=== PATIENT | female | born 1955 | race Caucasian/White ===

== ENCOUNTER → 2020-06-03 | Outpatient (REF) | payer OTHER ==
[2020-06-03 13:29] LABS: C REACTIVE PROTEIN QUANTITATIV 0.34 MG/DL (0.00-0.30); CPK CREATINE PHOSPHOKINASE 220 U/L (26-192); IRON (FE) 74 UG/DL (50-170); RHEUMATOID FACTOR QUANT < 10.0 IU/ML (<15.0); TOTAL 25(OH) VITAMIN D 24.9 NG/ML (30.0-100.0); VITAMIN B12 LEVEL 691 PG/ML (247-911)
[2020-06-03 13:51] LABS: HEMOGLOBIN A1c 5.4 %
[2020-06-05 00:07] LABS: ANA (HEP2) Negative (.); CYCLIC CITRULLINATED PEPTIDE 4 units (0-19); SSA SJOGRENS A <0.2 AI (0.0-0.9); SSB SJOGRENS B <0.2 AI (0.0-0.9)
== END ==
LOC: M SFHCRHEU 10:17
PROVIDERS: ATTEND Internal Medicine
DX: Z79.52 Long term (current) use of systemic steroids (principal); M79.10 Myalgia, unspecified site; M25.40 Effusion, unspecified joint; R68.2 Dry mouth, unspecified; Z79.899 Other long term (current) drug therapy

== ENCOUNTER → 2020-06-17 | Outpatient (CLI) | payer BC ==
--- NOTE | 2020-06-17 15:11 | DEXAMM ---
INDICATION: Z79.52 ALF SYSTEMIC STEROID USER. COMPARISON: None. TECHNIQUE: Bone density was measured using dual-energy x-ray absorptionmetry (DEXA). FINDINGS: AP SPINE L1-L4 BMD 1.781 g/cm2 Young Adult T-Score 4.7 Age Matched Z-Score 6.3. LT FEMUR, TOTAL BMD 1.244 g/cm2 Young Adult T-Score 1.9 Age Matched Z-Score 3.0. LT NECK BMD 1.213 g/cm2 Young Adult T-Score 1.3 Age Matched Z-Score 2.7. RT FEMUR, TOTAL BMD 1.260 g/cm2 Young Adult T-Score 2.0 Age Matched Z-Score 3.2. RT NECK BMD 1.065 g/cm2 Young Adult T-Score 0.2 Age Matched Z-Score 1.6. IMPRESSION: There is normal bones of the spine. There is city normal bone density of the left hip. There is normal bone density of the right hip. FOLLOW-UP: Recommendation for the next bone density exam: 5 years.. <Electronically signed by Jerome Callaway > 06/17/20 [id number]
== END ==
LOC: M WHC 10:53
PROVIDERS: ATTEND Internal Medicine
DX: Z13.820 Encounter for screening for osteoporosis (principal); Z79.52 Long term (current) use of systemic steroids

== ENCOUNTER → 2020-06-17 | Outpatient (REF) | payer OTHER ==
[2020-06-17 16:37] LABS: APPEARANCE, URINE CLEAR (CLEAR); BACTERIA, URINE AUTO NEGATIVE (NEGATIVE); BILIRUBIN, URINE AUTO NEGATIVE (NEGATIVE); BLOOD, URINE BLOOD 1+ (NEGATIVE); COLOR, URINE STRAW (YELLOW); GLUCOSE, URINE (UA) AUTO NEGATIVE (NEGATIVE); KETONE, URINE AUTO NEGATIVE (NEGATIVE); LEUKOCYTE ESTERASE, URINE AUTO NEGATIVE (NEGATIVE); NITRITE, URINE AUTO NEGATIVE (NEGATIVE); PROTEIN, URINE AUTO NEGATIVE (NEGATIVE); RBC, URINE AUTO 1 /HPF (0-3); SPECIFIC GRAVITY URINE AUTO 1.009 (1.002-1.035); SQUAMOUS EPITHELIAL CELL UR AU 0 /HPF (0-6); UROBILINOGEN, URINE AUTO 0.2 mg/dL (0.0-2.0); WBC, URINE AUTO 0 /HPF (0-3)
[2020-06-17 16:46] LABS: BASO % 0.5 % (0.0-1.0); EOS % 0.6 % (0.0-3.0); HEMATOCRIT 43.5 % (36.0-47.0); HEMOGLOBIN 14.3 g/dl (12.0-15.5); LYMPH # 1.7 10^3/uL (1.5-5.0); LYMPH % 27.7 % (24.0-44.0); MEAN CORPUSCULAR HEMOGLOBIN 30.3 pg (27.0-33.0); MEAN CORPUSCULAR HGB CONC 32.9 g/dl (32.0-36.5); MEAN CORPUSCULAR VOLUME 92.2 fl (80.0-96.0); MONO # 0.3 10^3/uL (0.0-0.8); MONO % 4.5 % (2.0-8.0); NEUTROPHILS # 4.1 10^3/uL (1.5-8.5); NEUTROPHILS % 66.2 % (36.0-66.0); PLATELET COUNT, AUTOMATED 272 10^3/uL (150-450); RED BLOOD COUNT 4.72 10^6/uL (4.00-5.40); WHITE BLOOD COUNT 6.2 10^3/uL (4.0-10.0)
[2020-06-17 17:08] LABS: CREATININE,RANDOM URINE 41.1 MG/DL; TOTAL PROTEIN,RANDOM URINE 8.2 MG/DL (0.0-12.0)
[2020-06-17 17:13] LABS: ALBUMIN 3.9 GM/DL (3.2-5.2); ALT/SGPT 34 U/L (12-78); BILIRUBIN,DIRECT 0.1 MG/DL (0.0-0.2); BILIRUBIN,TOTAL 0.3 MG/DL (0.2-1.0); BLOOD UREA NITROGEN 16 MG/DL (7-18); CARBON DIOXIDE LEVEL 34 MEQ/L (21-32); CHLORIDE LEVEL 106 MEQ/L (98-107); COMPLEMENT C3 156 MG/DL (90-180); COMPLEMENT C4 57 MG/DL (10-40); CREATININE FOR GFR 0.85 MG/DL (0.55-1.30); GLOMERULAR FILTRATION RATE > 60.0 (>45); GLUCOSE, FASTING 97 MG/DL (70-100); POTASSIUM SERUM 3.9 MEQ/L (3.5-5.1); SODIUM LEVEL 143 MEQ/L (136-145); TOTAL PROTEIN 7.5 GM/DL (6.4-8.2)
[2020-06-18 11:50] LABS: DRVV SCREEN 36.3 SEC
[2020-06-18 11:53] LABS: PTT LUPUS TYPE ANTICOAG SCREEN 0.9 (0-1.2)
== END ==
LOC: M SFHCRHEU 14:00
PROVIDERS: ATTEND Internal Medicine
DX: M06.4 Inflammatory polyarthropathy (principal)

== ENCOUNTER → 2020-07-01 | Outpatient (CLI) | payer BC, OTHER ==
--- NOTE | 2020-07-03 15:52 | SLEEPHOME ---
DATE: 07/01/2020 ORDERED BY: Dr. Sharee Mahan, Rheumatology Diagnostic home sleep testing was performed due to concern for the obstructive sleep apnea syndrome in this patient with a history of chronic fatigue. For testing, a nocturnal T3 respiratory monitoring device was used. Continuous record was made of pulse, oxygen saturation, air flow, chest and abdominal strain, and body position. There was 9 hours and 59 minutes of data reviewed. There was 7 hours an 49 minutes marked as time in bed. During the interval marked time in bed there were 112 respiratory events identified of 10 seconds in duration or greater for a respiratory event index of 14.3. The events were primarily obstructive. Baseline pulse rate and oxygen saturation were unable to be reported, as the probe became displaced. Testing was performed in both the supine and nonsupine positions. IMPRESSION: Abnormal home sleep testing with repetitive respiratory events and a respiratory event index of 14.3 is consistent with the obstructive sleep apnea syndrome (G47.33). RECOMMENDATION: The patient should be encouraged to undergo formal sleep evaluation.
== END ==
LOC: M SLEEP HO 10:58
PROVIDERS: ATTEND Internal Medicine
DX: R53.82 Chronic fatigue, unspecified (principal)

== ENCOUNTER → 2020-07-15 | Outpatient (CLI) | payer BC, OTHER ==
--- NOTE | 2020-07-16 08:36 | REP ---
INDICATION: HX OF ABN PELVIC XRAY, DORSALGIA. COMPARISON: None TECHNIQUE: 3T multiplanar MRI imaging of the was obtained using various sequences. FINDINGS: There is asymmetric bilateral hip joint space narrowing left greater than right with left femoral head marginal osteophytosis. There is a left hip joint effusion. There is patchy T2 hyper signal seen in the left acetabulum and left femoral head a large portion of which is subchondral and seen in conjunction with multifocal T2 hyper signal within the subchondral acetabulum. There is a slight degree of left femoral head flattening anteriorly. Mild degenerative changes are seen involving the sacroiliac joints. Degenerative changes seen involving the imaged portion of the spine. There is no evidence of a mass or mass effect. There is patchy T2 hyper signal seen in the right hip trochanteric tendono bursal region. This is seen in conjunction with a well demarcated fluid collection measuring approximately 1 x 2.5 x 2 cm. IMPRESSION: 1. Advanced left hip degenerative changes with subchondral edema and subchondral cyst formation as described above. This is seen in conjunction with the left hip joint effusion. 2. Right hip trochanteric tendono bursitis. 3. Although the examination was not performed as a dedicated left hip MRI examination there is evidence to suggest left hip labral degeneration. 4. Other findings as described above. <Electronically signed by Earl Moore > 07/16/20 [id number]
== END ==
LOC: M RAD 15:51
PROVIDERS: ATTEND Internal Medicine
DX: M54.9 Dorsalgia, unspecified (principal)

== ENCOUNTER → 2020-10-28 | Outpatient (CLI) | payer BC, OTHER ==
--- NOTE | 2020-10-29 14:47 | SLEEPCENT ---
DATE: 10/28/2020 ORDERED BY: Leigh Jerome Nocturnal polysomnography was performed for the titration of pressure therapy in this patient with a clinical diagnosis of obstructive sleep apnea syndrome, supported by home testing, revealing a respiratory event index of 14.3. For testing, patient was fit with a ResMed AirFit F20 full-face mask of small size. There was 4 cm of water pressure applied to the circuit, and the lights were extinguished. There were 8 hours and 26 minutes of data reviewed. There were only 178 minutes of sleep identified. Sleep latency was quite prolonged at 150 minutes. REM latency was prolonged at 244.5 minutes. Sleep architecture showed poor progression with fragmentation and periods of wake. There were two REM cycles noted late in the study. Overall sleep efficiency was 35.5%. The electrocardiogram showed a sinus rhythm with an average heart rate of 62 beats per minute. EEG showed no focal events and normal waveforms for wake and sleep stages. Respiratory events were fully palliated with CPAP at a pressure of 12. There was some minor limb activity. Limb movement arousal index during the study was 14.2. There were two trains of 30 events identified. IMPRESSION: 1. Obstructive sleep apnea syndrome (G47.44). 2. Possible periodic limb movement disorder (G47.61). Limb movement arousal index 14.2. RECOMMENDATION: Initiation of pressure therapy at 14 cm should be sufficient to overcome the patient's obstructive respiratory events. Pending clinical response, interventions to reduce the frequency of arousals from limb activity may also be helpful.
== END ==
LOC: M SLEEP 20:00
PROVIDERS: ATTEND Nurse Practitioner Family
DX: G47.33 Obstructive sleep apnea (adult) (pediatric) (principal)

== ENCOUNTER → 2022-02-25 | Outpatient (REF) | payer MEDICARE, OTHER ==
[2022-02-25 17:32] LABS: C REACTIVE PROTEIN QUANTITATIV 0.4 MG/DL (<1.0); COMPLEMENT C3 158.5 MG/DL (90.0-170.0); COMPLEMENT C4 75.8 MG/DL (12-36)
[2022-02-25 17:38] LABS: TOTAL 25(OH) VITAMIN D 28.5 NG/ML (20.0-100.0)
== END ==
LOC: M SFHCRHEU 13:51
PROVIDERS: ATTEND Internal Medicine
DX: E55.9 Vitamin D deficiency, unspecified (principal); M06.4 Inflammatory polyarthropathy

== ENCOUNTER → 2023-06-03 | Outpatient (REF) | payer MEDICARE, BC ==
[2023-06-03 18:57] LABS: C REACTIVE PROTEIN QUANTITATIV < 0.40 MG/DL (<1.0)
[2023-06-03 19:00] LABS: TOTAL 25(OH) VITAMIN D 46.8 NG/ML (20.0-100.0)
== END ==
LOC: M SFHCRHEU 13:24
PROVIDERS: ATTEND Internal Medicine
DX: E55.9 Vitamin D deficiency, unspecified (principal); M06.4 Inflammatory polyarthropathy

== ENCOUNTER → 2024-04-27 | Outpatient (REF) | payer MEDICARE, BC ==
[2024-04-27 18:05] LABS: C REACTIVE PROTEIN QUANTITATIV < 0.50 MG/DL (<1.0)
[2024-04-27 18:06] LABS: TOTAL 25(OH) VITAMIN D 46.2 NG/ML (20.0-100.0)
== END ==
LOC: M SFHCRHEU 12:33
PROVIDERS: ATTEND Internal Medicine
DX: E55.9 Vitamin D deficiency, unspecified (principal); M06.4 Inflammatory polyarthropathy; Z79.899 Other long term (current) drug therapy

== ENCOUNTER → 2024-10-19 | Outpatient (REF) | payer MEDICARE, BC | LOC: M SFHCRHEU 13:28 | PROVIDERS: ATTEND Internal Medicine | DX: M06.4 Inflammatory polyarthropathy (principal) ==